=== PATIENT | male | born 1975 | race Caucasian/White ===

== ENCOUNTER → 2016-12-02 | Outpatient (CLI) | payer BC ==
--- NOTE | 2016-12-02 18:50 | MR ---
EXAMINATION TYPE: MR knee RT wo con DATE OF EXAM: 12/02/2016 2:19 PM COMPARISON: Outside radiographs 11/15/2016. HISTORY: 41-year-old male with right knee pain since fall on ice 3 years ago TECHNIQUE: Multiplanar, multisequence imaging of the right knee is performed without IV contrast. FINDINGS: ACL, PCL, and MCL complex are intact. There is some intermediate signal at the femoral attachment of the LCL proper and also within the popliteus tendon, coronal T2 FS image 20. Findings suggest chronic sprain and tendinosis, respectively. LCL complex otherwise intact. The lateral meniscus is intact. There is mild diffuse thinning of lateral compartment articular carti gautam volume without discrete chondral defect. There is some degenerative signal at the junction of the posterior horn and body of the medial menisc us without clear contacting either articular surface, coronal PD FS image 7. Overall medial compartme nt articular cartilage volume is maintained. There is moderate cartilage loss along the lateral patellar facet of the patellofemoral compartment. In addition, there is thickening and heterogeneous signal at the patellar attachment of the lateral p atellar retinaculum suggesting chronic tendinosis. There is also focal edema within Hoffa's fat locat ed inferior and lateral to the patella, sagittal image 21. Extensor mechanism is intact. There is a multilocular 1.6 x 1.3 cm ganglion cyst anteriorly along the anterior margin of the medial meniscus. No discrete underlying tear of the anterior horn of the medial meniscus. Physiologic knee joint fluid with a small 5.4 x 2.2 cm Laird's cyst. There is normal popliteal artery anatomy and muscle bulk. No suspicious bone marrow replacement. IMPRESSION: 1. Possible small meniscal tear at the junction of the posterior horn and body of the medial meniscus . 2. Mild overall patellofemoral compartmental osteoarthrosis. 3. There is a 1.6 cm multilocular ganglion cyst along the anterior margin of the medial meniscus with out discrete tear of the anterior horn. 4. Some edematous change within Hoffa's fat inferior and lateral to the patella which can be seen in the setting of fat pad impingement syndrome. 5. Small Laird cyst.
== END ==
LOC: RADMRIMAIN 13:48
PROVIDERS: ATTEND Orthopaedic Surgery
DX: M17.11 Unilateral primary osteoarthritis, right knee (principal); M67.462 Ganglion, left knee; M71.22 Synovial cyst of popliteal space [Baker], left knee; R60.0 Localized edema

== ENCOUNTER 2017-05-09 07:36 | Day surgery (SDC) | payer BC ==
[2017-05-04 08:59] VITALS: BMI 37.3
[~2017-05-09 07:36] MED LIST: DEXAMETHASONE SOD PHOSPHATE 10 MG/ML 1 ML VIAL IV ONE; GLYCOPYRROLATE 0.2 MG/ML 2 ML VIAL ONE; HEPARIN SODIUM,PORCINE 5,000 UNIT/ML 1 ML VIAL SQ ONE; KETOROLAC 30 MG/ML 1 ML VIAL ONE; LIDOCAINE 1% 20 ML VIAL (10MG/ML) FOR IV START INTRADERMA PRN; LIDOCAINE 1% INJ 10MG/ML (20 ML MDV) ONE; MIDAZOLAM 2 MG/2 ML VIAL ONE; NEOSTIGMINE 1 MG/ML 10 ML VIAL ONE; PROPOFOL 10 MG/ML 20 ML VIAL IV ONE; ROCURONIUM BROMIDE 10 MG/ML 10 ML VIAL IV ONE; SUCCINYLCHOLINE CHLORIDE 100 MG/5 ML SYR IV ONE; ceFAZolin 2 GM in SODIUM CHLORIDE 0.9% 100 ML IVPB ONE; fentaNYL (PF) 50 MCG/ML 2 ML AMP ONE
[2017-05-09] MEDS: LACTATED RINGERS 1,000 ML IV SCH (08:11)
[2017-05-09 08:13] VITALS: RESP 16
--- NOTE | 2017-05-09 09:07 | P.GSHP ---
History of Present Illness H&P Date: 05/09/17 Chief Complaint: Right inguinal hernia This a 42-year-old male who presents today for laparoscopic robotic system repair of right inguinal hernia. Patient is developed a hernias right groin which is increasing in size. Past Medical History Additional Past Medical History / Comment(s): Pt states "I think I have sleep apnea" Has not been diagnosed with it. History of Any Multi-Drug Resistant Organisms: None Reported Additional Past Surgical History / Comment(s): Lung biopsy Past Anesthesia/Blood Transfusion Reactions: No Reported Reaction Past Psychological History: No Psychological Hx Reported Smoking Status: Current every day smoker Past Alcohol Use History: Rare Additional Past Alcohol Use History / Comment(s): Smokes 1PPD, has been smoking for 20 yrs. Past Drug Use History: None Reported - Past Family History Mother Family Medical History: No Reported History Medications and Allergies Home Medications Medication Instructions Recorded Confirmed Type [place](Unknown Dose) 1 tab PO HS 05/04/17 05/09/17 History Allergies Allergy/AdvReac Type Severity Reaction Status Date / Time No Known Allergies Allergy Verified 05/09/17 08:07 Surgical - Exam Vital Signs Temp Pulse Resp BP Pulse Ox 96.5 F L 72 16 97/55 94 L 05/09/17 08:12 05/09/17 08:12 05/09/17 08:12 05/09/17 08:12 05/09/17 08:12 - General well developed, no distress - Eyes PERRL - ENT normal pinna - Neck no masses - Respiratory normal expansion - Cardiovascular Rhythm: regular - Abdomen Abdomen: soft, non tender Hernia: inguinal (Reducible right inguinal hernia) Assessment and Plan Plan: Right inguinal hernia. We'll perform laparoscopic robotic-assisted repair.
--- NOTE | 2017-05-09 09:08 | P.GSHP ---
History of Present Illness H&P Date: 05/09/17 Chief Complaint: Right inguinal hernia Is a 42-year-old male who presents today for laparoscopic robotic of right inguinal hernia. Patient developed a tender mass in the right groin which has been increasing in size. Past Medical History Additional Past Medical History / Comment(s): Pt states "I think I have sleep apnea" Has not been diagnosed with it. History of Any Multi-Drug Resistant Organisms: None Reported Additional Past Surgical History / Comment(s): Lung biopsy Past Anesthesia/Blood Transfusion Reactions: No Reported Reaction Past Psychological History: No Psychological Hx Reported Smoking Status: Current every day smoker Past Alcohol Use History: Rare Additional Past Alcohol Use History / Comment(s): Smokes 1PPD, has been smoking for 20 yrs. Past Drug Use History: None Reported - Past Family History Mother Family Medical History: No Reported History Medications and Allergies Home Medications Medication Instructions Recorded Confirmed Type [place](Unknown Dose) 1 tab PO HS 05/04/17 05/09/17 History Allergies Allergy/AdvReac Type Severity Reaction Status Date / Time No Known Allergies Allergy Verified 05/09/17 08:07 Surgical - Exam Vital Signs Temp Pulse Resp BP Pulse Ox 96.5 F L 72 16 97/55 94 L 05/09/17 08:12 05/09/17 08:12 05/09/17 08:12 05/09/17 08:12 05/09/17 08:12 - General well developed, no distress - Eyes PERRL - ENT normal pinna - Respiratory normal expansion - Cardiovascular Rhythm: regular - Abdomen Abdomen: soft, non tender Hernia: inguinal (Right inguinal hernia) Assessment and Plan Plan: Right we'll hernia. We'll perform laparoscopic robotic system repair.
[2017-05-09] MEDS ORDERED: LIDOCAINE 2%-EPI 1:100,000 20 ML VIAL SQ ONE (10:07)
[2017-05-09] MEDS ORDERED: BUPIVACAINE (PF) 0.25% 30 ML VIAL SQ ONE (10:07)
--- NOTE | 2017-05-09 10:47 | P.OP ---
Date of Procedure: 05/09/17 Preoperative Diagnosis: Right inguinal hernia Postoperative Diagnosis: Right inguinal hernia Procedure(s) Performed: Laparoscopic robotic-assisted repair of right hernia Implants: Anesthesia: LITAA Surgeon: Cleveland Zazueta Estimated Blood Loss (ml): 5 Pathology: none sent Condition: stable Disposition: PACU Indications for Procedure: Operative Findings: Description of Procedure: he patient's placed on the operating table in the supine position. The patient received general anesthesia. The patient's abdomen was prepped and draped in usual sterile fashion. The skin was anesthetized 1% local Xylocaine at the incision sites. Using an 11 blade a skin incision was made at the umbilicus. The fascia was grasped with a [place] and then the peritoneal cavity was entered with the Veress needle. Position of the Veress needle was confirmed with a positive drop test. After adequate insufflation a 5 mm trocar was placed into the peritoneal cavity. The Laparoscope was placed the peritoneal cavity. And a robotic 8 mm trocar was placed in the right lateral position and then another 8 mm robotic trochars placed in the left lateral position. The original 5 mm trocar was exchanged for a 12 mm trocar. The patient was placed in reverse Trendelenburg and then the patient was docked to the robot. Next the peritoneum over top of the hernia was incised and then using blunt and sharp dissection and electrocautery the hernia sac was dissected free from the floor of the inguinal canal. The hernia sac was completely reduced into the peritoneal cavity. And then using the Pro vending machine technician mesh the hernia was repaired. The peritoneum was then sutured with 20V lock suture. The patient was then undocked the robot. The needle was withdrawn from the peritoneal cavity. The umbilical trocar site was closed with 0 Ethibond suture. The skin was closed interrupted 3-0 Monocryl suture. Dermabond dressing was applied. Patient was sent to recovery in stable condition.
[2017-05-09 11:09] VITALS: TEMP 97.2
[2017-05-09] MEDS: HYDROmorphone 1 MG/ML 1 ML SYRINGE IVP PRN ×2 (11:27→11:38)
[2017-05-09] MEDS ORDERED: HYDROcodone/APAP 7.5-325MG 1 EACH TAB PO ONE (12:26)
[2017-05-09 12:50] VITALS: BP 112/64; PULSE 83
== END 2017-05-09 13:02 | disposition home or self-care (01) ==
LOC: OR 07:36
PROVIDERS: ATTEND Surgery
DX: K40.90 Unilateral inguinal hernia, without obstruction or gangrene, not specified as recurrent (principal); F17.200 Nicotine dependence, unspecified, uncomplicated; J84.9 Interstitial pulmonary disease, unspecified; Z79.1 Long term (current) use of non-steroidal anti-inflammatories (NSAID); Z79.891 Long term (current) use of opiate analgesic
CPT/HCPCS: 49650; S2900

== ENCOUNTER → 2025-04-14 | Outpatient (CLI) | payer OTHER ==
[2025-04-14 15:32] LABS: ALT 28 U/L (10-49); AST 24 U/L (14-35); Albumin 4.3 g/dL (3.8-4.9); Albumin/Globulin Ratio 1.87 Ratio (1.60-3.17); Alkaline Phosphatase 97 U/L (41-126); Anion Gap 12.10 mmol/L (4.00-12.00); BUN/Creat Ratio 12.12 Ratio (12.00-20.00); Blood Urea Nitrogen 9.7 mg/dL (9.0-27.0); Calcium 9.3 mg/dL (8.7-10.3); Carbon Dioxide 21.9 mmol/L (21.6-31.8); Chloride 105 mmol/L (96-109); Cholesterol 225.00 mg/dL (0.00-200.00); Globulin 2.3 g/dL (1.6-3.3); Glucose 90 mg/dL (70-110); HDL Cholesterol 29.40 mg/dL (40.00-60.00); LDL Cholesterol,Calculated 148.4 mg/dL (0.0-131.0); Potassium 4.7 mmol/L (3.5-5.5); Sodium 139 mmol/L (135-145); Total Protein 6.6 g/dL (6.2-8.2); Triglycerides 236.00 mg/dL (0.00-149.00); VLDL Calculation 47.20 mg/dL (5.00-40.00)
== END | disposition home or self-care (01) ==
LOC: LABWHC1 11:30
PROVIDERS: ATTEND Family Medicine
DX: Z00.01 Encounter for general adult medical examination with abnormal findings (principal); Z12.5 Encounter for screening for malignant neoplasm of prostate; Z13.1 Encounter for screening for diabetes mellitus; N52.9 Male erectile dysfunction, unspecified
CPT/HCPCS: 36415; 80053; 80061; 83036; 84153; 84443